=== PATIENT | female | born 1990 | race Hispanic/Latino ===

== ENCOUNTER 2017-07-11 15:25 | Emergency (ER) | payer SELFPAY ==
[2017-07-11 16:16] LABS: #Eosinphils 0.1 thou/uL (0.0-0.7); #Lymphocytes 1.9 thou/uL (1.20-3.40); #Monocytes 0.5 thou/uL (0.11-0.59); #Neutrophils 6.9 thou/uL (1.40-6.50); %Basophils 0.1 % (0.0-1.0); %Eosinophils 0.9 % (0.0-10.0); %Lymphocytes 20.5 % (21.0-51.0); %Monocytes 5.8 % (0.0-10.0); Hematocrit 40.8 % (36.0-47.0); Mean Platelet Volume 7.4 fL (7.4-10.4); White Blood Cell (WBC) Count 9.5 thou/uL (4.8-10.8)
--- NOTE | 2017-07-11 19:07 | ULT ---
ULTRASOUND PELVIC ULTRASOUND TRANSVAGINAL DOPPLER DUPLEX: 07/11/17 HISTORY: 27-year-old female with first trimester vaginal bleeding. TECHNIQUE: Transabdominal transducer used to evaluate intrapelvic contents using the urinary bladder as an acous tic window. Endovaginal transducer used to visualize intrapelvic contents in greater detail. Color fl ow Doppler and Pulsed Doppler spectral waveform analysis of ovaries. FINDINGS: Uterus: 10 x 4.5 x 4.5 cm. Within the uterine fundus, there is a fluid collection that has irregular margins, measuring approxim ately 1.4 cm, which would correspond to an estimated gestational age of approximately 6 weeks, 2 days (+/- 12 days). There is no pole, and no yolk sac. No heart activity. No free fluid in th e cul-de-sac. There is an ill-defined, slightly hypoechoic structure in the right adnexa measuring ap proximately 2 x 1 x 1 cm with blood flow demonstrated by doppler, which the applications intern has labeled a s the right ovary, but it uncertain that this is actually the right ovary. The left ovary is not iden tified. IMPRESSION: Evidence for missed . NOY [place] POS: GHULAM
== END 2017-07-11 19:49 | disposition home or self-care (01) ==
LOC: ERS 15:25
DX: O02.1 Missed abortion (principal)
CPT/HCPCS: 36415; 76856; 81025; 84702; 85025

== ENCOUNTER 2018-06-06 15:26 | Inpatient (IN) | payer MEDICAID, SELFPAY ==
[2018-06-06 15:55] VITALS: BMI 36.7
[2018-06-06] MEDS ORDERED: Betamet Acet/Betamet Na Ph 30 MG/5 ML VIAL ONE (16:40)
[2018-06-06] MEDS ORDERED: Promethazine HCl 25 MG/ML VIAL IM PRN ×2 (16:41→18:17)
[2018-06-06] MEDS ORDERED: Carboprost 250 MCG/ML AMP IM PRN (16:41)
[2018-06-06] MEDS ORDERED: NS / Oxytocin 40 units/1000ml 1,000 ML IV PRN (16:41)
[2018-06-06] MEDS ORDERED: Misoprostol 200 MCG TAB PR PRN (16:41)
[2018-06-06] MEDS ORDERED: Lidocaine 1% (PF) 30 ML VIAL SC PRN (16:41)
[2018-06-06] MEDS ORDERED: Ondansetron PF 4 MG/2 ML Vial IVP PRN ×2 (16:41→18:17)
[2018-06-06] MEDS ORDERED: Methylergonovine 0.2 MG/ML VIAL IM PRN (16:41)
[2018-06-06] MEDS ORDERED: Betamet Acet/Betamet Na Ph 30 MG/5 ML VIAL IM SCH (16:45)
[2018-06-06] MEDS ORDERED: Magnesium Sulfate 20 gm/500 ml 20 GM/500 ML BAG ONE (16:46)
--- NOTE | 2018-06-06 16:47 | PDOC.EVN ---
Event Note - Event Note Event Note: 28yo at 26w presented with worsening abd cramping and blood tinged spotting. Complete hx to follow. Cervical check is /. Betamethasone to be given stat. NICU notified. GBS unk.
[2018-06-06] MEDS: Lactated Ringer's 1,000 ML IV SCH ×2 (16:57→22:44)
[2018-06-06] MEDS ORDERED: Penicillin G Potassium 5 MILL.UNITS VIAL ONE (16:58)
[2018-06-06] MEDS ORDERED: Magnesium Sulfate 20 gm/500 ml 20 GM/500 ML BAG IVPB SCH (17:00)
[2018-06-06] MEDS ORDERED: Magnesium Sulfate 4 GM in Sodium Chloride 0.9% 250 ML 250 ML IVPB SCH (17:00)
[2018-06-06] MEDS ORDERED: Penicillin G Potassium 5 MILL.UNITS in Sodium Chloride 0.9% 100 ML IVPB SCH (17:00)
[2018-06-06] MEDS ORDERED: Butorphanol Tartrate 1 MG/ML VIAL ONE (17:01)
[2018-06-06] MEDS ORDERED: Butorphanol Tartrate 1 MG/ML VIAL SLOW IVP PRN (17:04)
--- NOTE | 2018-06-06 17:12 | PDOC.EVN ---
Event Note - Event Note Event Note: DARREL Candelario note: Admission note: Patient seen and examined at approx 1650 in LDR2. Patient has full dictated H&P. In Brief: HPI: This patient of the [facility] arrived with LAP at 26 weeks. No past OB complications. She is a with 1 SAB at 10 weeks. Had sex last PM. No VB or ROM. HX prior left eye trauma with vision loss. Patient seen with Hemant Lockhart and Kate (Residents mergers and acquisitions attorney). Past med: none Past Surg; None OB HX: SAB 10 weeks, no D&C Cervix is Bedside sono by me: no previa and cephalic presentation Assessment and plan: 1. 26 weeks PTL: -Mag for neuroprotection -steroids now and in 12 hrs if not delievered -PCN for GBS coverage -NICU consult requested -Sono for EFW (cephalic by my sono) 2. Await progress I discussed with the family that 6cm is unlikely to respond to tocolytics. We will give IVF hydration as well, and sedate prn. I discussed NICU involvement and possible transport.
--- NOTE | 2018-06-06 17:15 | HP ---
TIME OF EVALUATION: 16:35 until 16:51. LOCATION: Labor and Delivery in bed #2. REASON FOR EVALUATION: Abdominal pain at 26 weeks. This is a patient of the Clinic. HISTORY OF PRESENT ILLNESS: This is the patient I was first seen by Dr. Karen Harley with the Family Medicine program along with Isha Lockhart. I evaluated the patient within 15 minutes after the resident's first evaluation. HISTORY OF PRESENT ILLNESS: In brief, this is a patient who is a 28-year-old , Cuban speaking, G2, P0 with prior SAB x1 at 10 weeks, who is at 26 weeks. She reports intercourse last night. She states increasing abdominal pain rated as a 10/10. No vaginal bleeding, although she has had pinkish whitish discharge since yesterday increasing today, but no gross leakage of fluid and no fevers. She denies vaginal trauma. She denies any abdominal trauma. She denies headaches, visual changes or right upper quadrant pain. REVIEW OF SYSTEMS: Complete review of systems was checked and is otherwise negative unless specified in the HPI. PAST MEDICAL HISTORY: Negative except that she has left ocular flash vision loss due to a preexisting trauma. PAST SURGICAL HISTORY: None. ALLERGIES: None. OB HISTORY: She has had a prior miscarriage at 10 weeks that did not require surgical evacuation. PHYSICAL EXAMINATION: VITAL SIGNS: The patient's blood pressure is normotensive at 126/66 and she is afebrile with a temperature of 98.2, pulse is in the 90s, respirations are 20, unlabored. GENERAL: She is grossly in some moderate discomfort, but in no acute distress. ABDOMEN: Gravid and size consistent with dates. HEAD: Reveals an opacified left cornea compatible with her prior trauma history. GENITOURINARY: Perineal inspection, there is no gross evidence of bleeding or ruptured membranes. I performed a vaginal examination after explaining to the patient the need for the exam. I find her cervix to be 6 cm dilated, 90% effaced and 0 station with a bulging bag of water. On monitors, heart tones are in the 140s to 150s with moderate variability compatible with an EGA of 26 weeks. On tocodynamometer, there are some contractions that are irregular, but appear to be about every 3-5 minutes. ASSESSMENT: This is a 28-year-old G2, P0 at 26 weeks inactive labor. I have discussed labor with the patient, her partner, and family member in the room. The inability to transfer due to active labor was also discussed. I have also discussed our limitations in trying to hold labor progress after a cervical dilation of 6 cm. PLAN: 1. Penicillin for GBS coverage. 2. Magnesium sulfate for C&S protection. 3. Betamethasone 12 mg x1 stat now. The patient remained on delivered by 12 hours, we will redose. 4. I have ordered a cath UA. 5. I have ordered a GC and chlamydia vaginal swab. 6. I have ordered a sonogram for estimated weight. 7. Contact NICU. We have notified of the charge nurse in the NICU who is aware and we have requested a consult regarding baby viability and possible need to be transferred after stabilization. 8. Patient evaluated at bedside along with Dr. Harley and Gifty Lockhart and detailed information given to the patient. 9. Await spontaneous labor and delivery. It is important to note that we did perform a bedside ultrasound and a bedside ultrasound did reveal the baby to be in a cephalic presentation. Difficulties of a 26-week were discussed with the patient. I am awaiting NICU consult to provide details on long-term morbidity at 26 weeks. OMAYRAD
[2018-06-06] MEDS ORDERED: Fentanyl 4 mcg/Bup 0.1% Cadd 100 ML ONE (17:31)
[2018-06-06] MEDS ORDERED: Bupivacaine 0.75% W/DEXTROSE 8.25% 2 ML AMP ONE (17:32)
[2018-06-06 17:42] LABS: Hemoglobin 12.1 g/dL (12.0-16.0); Mean Corpuscular HGB CONC 33.6 g/dL (32.0-36.0); Mean Corpuscular Hemoglobin 30.3 pg (27.0-31.0); Mean Corpuscular Volume 90.2 fL (78.0-98.0); Mean Platelet Volume 8.2 fL (7.4-10.4); Platelet Count 232 thou/uL (130-400); RBC Distribution Width 12.3 % (11.5-14.5); Red Blood Cell (RBC) Count 3.99 mill/uL (4.20-5.40)
--- NOTE | 2018-06-06 18:13 | ULT ---
OB ULTRASOUND COMPLETE: 06/06/19 HISTORY: 28-year-old female for estimated weight and labor. Single viable intrauterine fetus is noted in cephalic presentation. The placenta is posterior. heart rate is 150 beats per minute. Amniotic fluid index equals 7.1 cm with an open appearing cervix. Limited anatomy with head, stomach, and bladder being demonstrated. BIOMETRY: BPD 6.3 cm - - 25 weeks, 6 days Head circumference 23 cm - - 25 weeks, 0 days Abdominal circumference 22.6 cm - - 27 weeks, 0 days Femur length 4.7 cm - - 25 weeks, 5 days IMPRESSION: Single viable intrauterine fetus at 25 weeks, 3 days with an EDC of 09/16/18. Estimated weight i s 913 grams plus or minus 135 grams. Low amniotic fluid index at 7.1 cm. Widely opened cervix measuri ng approximately 5.2 cm transversely. The patient's associated healthcare providers were aware of the findings of this study. POS: GHULAM
[2018-06-06 18:17] LABS: Syphilis Antibody Nonreactive (Nonreactive); Syphilis Antibody Index 0.05 S/CO (<1.00 Non-Reactive)
[2018-06-06] MEDS ORDERED: diphenhydrAMINE 50 MG/ML VIAL IVP PRN (18:17)
[2018-06-06] MEDS ORDERED: ePHEDrine/0.9% NaCl/PF SYRINGE 50 mg/10 ml SLOW IVP PRN (18:17)
[2018-06-06] MEDS ORDERED: Naloxone HCl 0.4 mg/ml Vial IVP PRN ×2 (18:17)
[2018-06-06] MEDS ORDERED: Lactated Ringer's 500 ML IV PRN (18:17)
[2018-06-06] MEDS ORDERED: Acetaminophen 325 MG TAB PO PRN (18:17)
[2018-06-06] MEDS ORDERED: Hydrocerin (Eucerin) Cream 120 gm Jar TOP PRN (18:17)
[2018-06-06 18:18] LABS: HBSAg Index 0.22 S/CO (0-0.99); Hep B Surf Ag Non-Reactive S/CO (NonReactive)
[2018-06-06] MEDS ORDERED: Fentanyl 4 mcg/Bupivacaine 0.1% Cassette 100 ML EPIDURAL SCH (18:30)
[2018-06-06] MEDS ORDERED: Communication Order-Pharmacy FS SCH (18:30)
--- NOTE | 2018-06-06 20:32 | PDOC.LDPN ---
Labor & Delivery Progress Note - Subjective Subjective: comfortable - Objective Vital signs reviewed and normal: yes General: NAD, resting FHT: category 2 (150s/mod/variable and late decel) [place] contractions every: approximately every 5 min Plan: continue plan of care -: @ 26 wks Active labor, 26 wks - One dose betamethasone given, will redose 12 hours after - Mag for neuroprotection - PCN for GBS - NICU consulted - Sono showed DESTINI 7.1. EFW 913 +/- 135 grams - Continue IVF - UA and culture pending - GCC swabs pending - strip difficult to assess, cat II for variable and late decel seen - contractions difficult to assess on strip Await spontaneous delivery.
[2018-06-06 21:23] LABS: Bilirubin Negative (Negative); Blood, Urine Negative (Negative); Clarity CLEAR (Clear); Glucose, Urine (Dipstick) Negative (Negative); Leukocyte Negative (Negative); Nitrite Negative (Negative); Protein, Urine (Dipstick) Negative (Neg-Trace); Specific Gravity, Urine 1.016 (1.002-1.036); Urobilinogen 0.2 mg/dL (0.2-1.0); pH, Urine 5.5 (5.0-9.0)
[2018-06-06] MEDS: Penicillin G 2.5 MILL.units 2.5 MILL.UNITS in Premix Bag 1 BAG IVPB SCH (21:45)
--- NOTE | 2018-06-06 23:00 | PDOC.LDPN ---
Labor & Delivery Progress Note - Subjective Subjective: comfortable - Objective Vital signs reviewed and normal: yes General: NAD FHT: category 1 (155/mod/no decel/no accel) Bud contractions every: difficult to assess. q3-5 min at times Plan: continue plan of care -: @ 26.0 wks by LMP/11.6 wk sono Active labor, 26 wks - One dose betamethasone given, next dose after 12 hrs (4:45) - Mag for neuroprotection - PCN for GBS - NICU consulted - Sono showed DESTINI 7.1. EFW 913 +/- 135 grams - Continue IVF - UA neg for infection. Positive for ketones - VP3 negative - GCC swabs pending - Cat I Await spontaneous delivery.
--- NOTE | 2018-06-07 01:06 | PDOC.EVN ---
Event Note - Event Note Event Note: Consult Note from 06/06/18: Asked to speak with Ms. Bullock by Dr. Marcial regarding potential delivery of at 26 weeks gestation. Ms. Bullock is a 28 year old, , who was admitted on 06/06/18 to L&D with contractions, dilated to ~ 6 cm with intact /bulging membranes. She has received a dose of steroids and antibiotics and was started on Mag Sulfate. We discussed the possibility of morbidity and mortality related to a premature as well as immediate resuscitative efforts at . Also discussed the need for respiratory management (including intubation , CPAP, and surfactant administration), IV fluids (with umbilical line access), nutrition, and antibiotic administration. After infant is stabilized, he/she would be admitted to the NICU for further management. Mom is Vietnamese-speaking only but has a sister who speaks [place] fluently. Mom is currently in pain with her contractions and crying off and on during our discussion. We will speak with her again as she and/or her family requests or with any changes in the infant's status. Naomi Griffin DNP, TRAILER PARK MANAGER, [employer] MOLDER-BC
[2018-06-07] MEDS: Penicillin G 2.5 MILL.units 2.5 MILL.UNITS in Premix Bag 1 BAG IVPB SCH ×4 (01:32→14:11)
[2018-06-07] MEDS ORDERED: Fentanyl 4 mcg/Bup 0.1% Cadd 100 ML ONE (02:29)
--- NOTE | 2018-06-07 02:55 | PDOC.LDPN ---
Labor & Delivery Progress Note - Subjective Subjective: comfortable, vaginal pressure - Objective Vital signs reviewed and normal: yes General: NAD FHT: category 1 (140s/mod/no accel/no decel) Plan: continue plan of care -: @ 26.0 wks by LMP/11.6 wk sono Active labor, 26 wks - One dose betamethasone given, next dose after 12 hrs (4:45) - Mag for neuroprotection, @ 1gm/hr. Unable to obtain reflexes, however could be 2/2 body habitus. Strict I/Os to monitor urine output. - PCN for GBS ppx - NICU consulted - Sono showed DESTINI 7.1. EFW 913 +/- 135 grams - Continue IVF - UA neg for infection - VP3 negative - GCC swabs pending - Cat I Continue current management.
[2018-06-07] MEDS ORDERED: Betamet Acet/Betamet Na Ph 30 MG/5 ML VIAL IM SCH (04:45)
--- NOTE | 2018-06-07 04:47 | PDOC.LDPN ---
Labor & Delivery Progress Note - Subjective Subjective: comfortable, vaginal pressure - Objective Vital signs reviewed and normal: yes General: NAD FHT: category 1 (145/mod/pos accel/ one variable decel) [place] contractions every: 2-4 min - Assessment (1) labor Code(s): O60.00 - LABOR WITHOUT DELIVERY, UNSPECIFIED TRIMESTER Current Visit: Yes Status: Acute Qualifiers: Fetus number: fetus 1 of multiple gestation Plan: continue plan of care -: @ 26.1 wks by LMP/11.6 wk sono Active labor, 26.1 wks - One dose betamethasone given, next dose after 12 hrs (4:45 am 06/07) - Mag for neuroprotection, @ 1gm/hr. Unable to obtain reflexes, however could be 2/2 body habitus. Urine output 50-100mL/hour. - PCN for GBS ppx - NICU consulted - Sono showed DESTINI 7.1. EFW 913 +/- 135 grams - Continue IVF - UA neg for infection - VP3 negative - GCC swabs pending - Cat I Continue current management.
--- NOTE | 2018-06-07 07:34 | PDOC.LDPN ---
Labor & Delivery Progress Note - Subjective Subjective: comfortable - Objective Vital signs reviewed and normal: yes General: NAD FHT: category 1 [place] contractions every: 3-5min - Assessment (1) labor Code(s): O60.00 - LABOR WITHOUT DELIVERY, UNSPECIFIED TRIMESTER Current Visit: Yes Status: Acute Plan: continue plan of care -: @26.1 wks by LMP/11.6 wk sono Active labor, 26.1 wks - S/p 2 doses betamethasone - Mag for neuroprotection, @ 1gm/hr. Urine output 250 mL/hour. - PCN for GBS ppx - NICU consulted - Sono showed DESTINI 7.1. EFW 913 +/- 135 grams - Continue IVF, monitor urine output - UA neg for infection - VP3 negative - GCC swabs pending - FHTs 150's Cat 1 Continue current management
--- NOTE | 2018-06-07 08:13 | PDOC.EVN ---
Event Note - Event Note Event Note: HD2...L&D check: Arrested PTL 26 weeks 1 day Plan D/W team integrated logistics operations manager today: 1. Stop mag at 24 hrs (1630), with restart if needed for CTX for neuroprotection if desired 2. Steroids done at 1630 yesterday 3. Continue PCN for now 4. NICU consult done With discussion with Dr Bautista, we may consider keeping Mag until 48 hrs steroid benefit which would be 11/12 hide worker (approx 0600)
[2018-06-07] MEDS: NS / Oxytocin 40 units/1000ml 1,000 ML IV PRN ×2 (09:47→10:57)
[2018-06-07 10:15] LABS: Actual Bicarbonate (HCO3a) 20.7 mEq/L (22-28)
[2018-06-07 10:18] LABS: Actual Bicarbonate (HCO3v) 22 mEq/L (22-28); pH (Cord, venous) 7.33 (7.32-7.43)
--- NOTE | 2018-06-07 12:21 | DN-2 ---
DELIVERING PHYSICIAN: Dr. Janet Camacho, PGY-1, Dr. Olegario Rai, PGY-2. ATTENDING PHYSICIAN: Nain Bautista M.D. PROCEDURE: Spontaneous vaginal delivery. ANESTHESIA: Epidural. ESTIMATED BLOOD LOSS: 100 mL POSTOPERATIVE DIAGNOSES: 1. intrauterine in labor. 2. History of spontaneous at 10 weeks x1. POSTOPERATIVE DIAGNOSES: 1. intrauterine , delivered. 2. History of spontaneous at 10 weeks x1. INDICATIONS: A 28-year-old female, at 26 weeks, presented in active labor. DELIVERY NOTE: This is a 28-year-old female, -0-1-0 at 26.1 weeks who delivered a viable female infant at 09:44. During the antepartum course, due to the patient being , she received an ac celerated course of steroids. When she came in, she got 2 doses of steroids 12 hours apart. She was on magnesium for neuro protection as well. Following this course, a vigorous female was delivered o lars an intact perineum in the occiput anterior position. Anterior shoulder and remainder of the body delivered. No nuchal cord. The head was held down. The baby was then wrapped in warm blankets and wrapped in plastic. Delayed cord clamping was performed. A cord was clamped and cut and cord blood collected, along with a cord segment. Placenta delivered intact with a 3-vessel cord noted. Fundal massage and the placenta will be sent for pathology. Fundal massage was performed and the fundus wa s firm. The cervix and vagina were inspected and found to have a first-degree hymenal laceration jerrell t was hemostatic after pressure. No repair was needed. Infant went to the NICU in good condition fo r routine care. Apgars were at 1 and 5 minutes respectively. The patient tolerated delivery w ell and went to after routine recovery/care.
[2018-06-07] MEDS ORDERED: Milk Of Magnesia 30 ML UDCUP PO PRN (13:17)
[2018-06-07] MEDS ORDERED: Lanolin Ointment 7 GM TUBE TOP PRN (13:17)
[2018-06-07] MEDS ORDERED: Preparation H Ointment 28 GM TUBE PR PRN (13:17)
[2018-06-07] MEDS ORDERED: Bisacodyl 10 MG SUPP PR PRN (13:17)
[2018-06-07] MEDS: Ibuprofen 800 MG TAB PO SCH ×2 (14:36→21:59)
[2018-06-07] MEDS: Docusate Calcium (SURFAK) 240 MG CAP PO SCH (21:59)
[2018-06-08] MEDS: Ibuprofen 800 MG TAB PO SCH ×3 (05:38→21:44)
--- NOTE | 2018-06-08 07:08 | PDOC.PP ---
Post Progress Note Post Day #: 1 Vital Signs (12 hours) Temp Pulse Resp BP BP Pulse Ox 06/08/18 05:30 97.8 F 73 16 116/57 L 06/08/18 01:00 98.6 F 90 16 117/51 L 98 06/07/18 20:05 98.2 F 89 16 110/59 L 98 Weight Weight 97.069 kg - Physical Examination General: NAD Cardiovascular: no m/r/g, RRR Respiratory: clear to auscultation bilaterally, non-labored breathing Abdominal: + bowel sounds, lochia, appropriately TTP Psychiatric: A&Ox3, normal affect Result Diagrams: 06/06/18 17:31 Additional Labs: Post Labs Blood Type O POSITIVE 06/06/18 17:31 Hep Bs Antigen Non-Reactive S/CO (NonReactive) 06/06/18 17:31 (1) labor Code(s): O60.00 - LABOR WITHOUT DELIVERY, UNSPECIFIED TRIMESTER Status : Acute - Assessment/Plan sIUP labor s/p delivery - Received 2 doses betamethasone and Mg for neuroprotection - S/p Penicillin for GBS ppx - UA, VP3 neg. G/C pending - Baby girl in NICU - Continue routine PP care GBS + - Received adequate treatment prior to delivery
--- NOTE | 2018-06-08 07:30 | PDOC.PP ---
Post Progress Note Post Day #: 1 Subjective: This is a 28 who delivered yesterday at 26.1 week.s States she feels well today, is concerned about baby's condition but has no real concerns herself. PO intake tolerated: yes Flatus: yes Ambulation: yes Vital Signs (12 hours) Temp Pulse Resp BP BP Pulse Ox 06/08/18 05:30 97.8 F 73 16 116/57 L 06/08/18 01:00 98.6 F 90 16 117/51 L 98 06/07/18 20:05 98.2 F 89 16 110/59 L 98 Weight Weight 97.069 kg - Physical Examination General: NAD Cardiovascular: no m/r/g, RRR Respiratory: clear to auscultation bilaterally, non-labored breathing Abdominal: + bowel sounds, appropriately TTP Extremities: negative homans (B) Neurological: no gross focal deficits Psychiatric: A&Ox3, normal affect Result Diagrams: 06/06/18 17:31 Additional Labs: Post Labs Blood Type O POSITIVE 06/06/18 17:31 Hep Bs Antigen Non-Reactive S/CO (NonReactive) 06/06/18 17:31 (1) care and examination Code(s): Z39.2 - ENCOUNTER FOR ROUTINE FOLLOW-UP Status: Acute (2) labor Code(s): O60.00 - LABOR WITHOUT DELIVERY, UNSPECIFIED TRIMESTER Status : Acute - Assessment/Plan PP day 1, s/p delivery 26.1 - Received 2 doses betamethasone and Mg for neuroprotection - S/p Penicillin for GBS ppx - UA, VP3 neg. G/C pending - Baby girl in NICU, instructed patient to expect her to be here until due date - Continue routine PP care, anticipate d/c home tomorrow GBS + - Received adequate treatment prior to delivery Pre-term delivery - consider infxn vs cervical insufficiency vs genetic cause - for now f/u on Urine culture, G/C chlamyida - will f/u to see what cervical length was at 20 wks - next will need close supervision: cervical length at 14wks, progesterone <Abraham Dickson - Last Filed: 06/08/18 07:26> Vital Signs (12 hours) Temp Pulse Resp BP BP Pulse Ox 06/08/18 05:30 97.8 F 73 16 116/57 L 06/08/18 01:00 98.6 F 90 16 117/51 L 98 06/07/18 20:05 98.2 F 89 16 110/59 L 98 Weight Weight 214 lb Result Diagrams: 06/06/18 17:31 Additional Labs: Post Labs Blood Type O POSITIVE 06/06/18 17:31 Hep Bs Antigen Non-Reactive S/CO (NonReactive) 06/06/18 17:31 <Nain Bautista - Last Filed: 06/08/18 07:46> Attending Addendum - Attending Addendum Date/Time: 06/08/18 0745 I personally evaluated the patient and discussed the management with Dr. Dickson I agree with the History, Examination, Assessment and Plan documented above with any addition or exceptions noted below. <Nain Bautista - Greg Filed: 06/08/18 07:46>
[2018-06-08] MEDS: Docusate Calcium (SURFAK) 240 MG CAP PO SCH ×2 (08:32→21:18)
[2018-06-08] MEDS: Prenatal Vitamin 1 TAB PO SCH (08:32)
[2018-06-08] MEDS ORDERED: Adacel (T-DAP) 0.5 ML VIAL IM ONE (09:00)
[2018-06-09] MEDS: Ibuprofen 800 MG TAB PO SCH (06:01)
--- NOTE | 2018-06-09 07:37 | PDOC.PP ---
Post Progress Note Post Day #: 2 Subjective: This is a 28 yo F at PP day 2 after at 26.1 weeks. She states she feels well. Walking and eating are without complications. She has very minimal bleeding. PO intake tolerated: yes Flatus: yes Ambulation: yes Vital Signs (12 hours) Resp Pulse Ox 06/09/18 03:40 24 H 06/08/18 21:45 32 H 98 Weight Weight 97.069 kg - Physical Examination General: NAD Respiratory: non-labored breathing Abdominal: no distention Neurological: no gross focal deficits Psychiatric: A&Ox3, normal affect Result Diagrams: 06/06/18 17:31 Additional Labs: Post Labs Blood Type O POSITIVE 06/06/18 17:31 Hep Bs Antigen Non-Reactive S/CO (NonReactive) 06/06/18 17:31 (1) care and examination Code(s): Z39.2 - ENCOUNTER FOR ROUTINE FOLLOW-UP Status: Acute (2) labor Code(s): O60.00 - LABOR WITHOUT DELIVERY, UNSPECIFIED TRIMESTER Status : Acute - Assessment/Plan PP day 1, s/p delivery 26.1 - Received 2 doses betamethasone and Mg for neuroprotection - S/p Penicillin for GBS ppx - Ucx negative, VP3 neg. - G/C pending - Baby girl in NICU, instructed patient to expect her to be here until due date - Patient stable for d/c today GBS + - Received adequate treatment prior to delivery Pre-term delivery - consider infxn vs cervical insufficiency vs genetic cause - for now f/u on Urine culture, G/C chlamyida - will f/u to see what cervical length was at 20 wks - next will need close supervision: cervical length at 14wks, progesterone Dispo: D/c today <Abraham Dickson - Last Filed: 06/09/18 07:34> Vital Signs (12 hours) Resp Pulse Ox 06/09/18 03:40 24 H 06/08/18 21:45 32 H 98 Weight Weight 214 lb Result Diagrams: 06/06/18 17:31 Additional Labs: Post Labs Blood Type O POSITIVE 06/06/18 17:31 Hep Bs Antigen Non-Reactive S/CO (NonReactive) 06/06/18 17:31 <Mary Miranda - Last Filed: 06/09/18 07:50> Attending Addendum - Attending Addendum Date/Time: 06/09/18748 I personally evaluated the patient and discussed the management with Dr. Dickson. I agree with the History, Examination, Assessment and Plan documented above. D/ c home. <Mary Miranda - Last Filed: 06/09/18 07:50>
[2018-06-09 08:11] VITALS: BP 117/66; TEMP 98.5
[2018-06-09] MEDS: Prenatal Vitamin 1 TAB PO SCH (08:36)
[2018-06-09] MEDS: Docusate Calcium (SURFAK) 240 MG CAP PO SCH (08:37)
[2018-06-10 00:39] LABS: Chlamydia by PCR Inconclusive (NotDetected); GC by PCR Inconclusive (NotDetected)
== END 2018-06-09 10:15 | disposition home or self-care (01) | DRG 806 ==
LOC: L&D/OP 15:26 → L&D 16:55 → 3SW 06-07 13:22
PROVIDERS: ADMIT Obstetrics & Gynecology; ATTEND Obstetrics & Gynecology
PROC: 10E0XZZ Delivery of Products of Conception, External Approach (ICD-10-PCS; principal; 2018-06-07)
DX: O60.12X0 Preterm labor second trimester with preterm delivery second trimester, not applicable or unspecified (principal); O98.82 Other maternal infectious and parasitic diseases complicating childbirth; Z37.0 Single live birth; Z3A.26 26 weeks gestation of pregnancy; O70.0 First degree perineal laceration during delivery; B95.1 Streptococcus, group B, as the cause of diseases classified elsewhere
CPT/HCPCS: 36415; 51702; 76805; 76815; 81003; 82805; 85027; 86780; 86850; 86900; 86901; 87086; 87340; 87480; 87491; 87510; 87591; 87660; 88305; 90715; 99285; J0595; J0702; J2405; J2540; J3475; J3490